=== PATIENT | female | born 1995 | race Caucasian/White ===

== ENCOUNTER 2017-10-16 23:15 | Emergency (ER) | payer BC, OTHER ==
[2017-10-17 00:41] LABS: URINE PH (Dip) POC 5.5 (5.0-8.5)
[2017-10-17 00:41] LABS: URINE BLOOD (Dip) POC Trace-intact (NEGATIVE); URINE GLUCOSE (Dip) POC Negative (NEGATIVE); URINE KETONES (Dip) POC Negative (NEGATIVE); URINE LEUKOCYTE EST (Dip) POC Trace (NEGATIVE); URINE NITRITE (Dip) POC Negative (NEGATIVE); URINE TOTAL PROTEIN POC Negative (NEGATIVE)
[2017-10-17] MEDS: KETOROLAC 30 MG INJ IM (00:51)
== END 2017-10-17 01:23 | disposition home or self-care (01) ==
LOC: FTE 23:15
DX: M54.5 Low back pain (principal); N30.00 Acute cystitis without hematuria
CPT/HCPCS: 81003; 81025; 96372; 99284-25